=== PATIENT | male | born 1995 | race African-American/Black ===

== ENCOUNTER 2016-07-28 11:58 | Emergency (ER) | payer OTHER | END 2016-07-28 12:37 | disposition home or self-care (01) | LOC: D.ER 11:58 | DX: F41.9 Anxiety disorder, unspecified (principal) ==

== ENCOUNTER 2017-02-15 15:12 | Emergency (ER) | payer OTHER ==
[2017-02-15 18:20] LABS: APPEARANCE CLEAR (CLEAR); BACTERIA FEW /hpf (NONE SEEN); BILIRUBIN NEGATIVE (NEGATIVE); COLOR DK YELLOW (YELLOW); EPITHELIAL CELLS OCC /hpf (0-5); GLUCOSE NEGATIVE (NEGATIVE); KETONE NEGATIVE (NEGATIVE); LEUKOCYTE ESTERASE NEGATIVE (NEGATIVE); MUCUS <1+ /lpf (NONE SEEN); NITRITE NEGATIVE (NEGATIVE); PROTEIN NEGATIVE (NEGATIVE); RED CELLS - URINE 0-5 /hpf (0-5); SPECIFIC GRAVITY 1.015 (1.005-1.020); UROBILINOGEN NORMAL (NORMAL); WHITE CELLS - URINE 0-5 /hpf (0-5)
[2017-02-15 18:26] LABS: UDS - AMPHET NEGATIVE QUAL (NEGATIVE); UDS - BARB NEGATIVE QUAL (NEGATIVE); UDS - BENZO POSITIVE QUAL (NEGATIVE); UDS - COCAINE NEGATIVE QUAL (NEGATIVE); UDS - METH NEGATIVE QUAL (NEGATIVE); UDS - OPIATE NEGATIVE QUAL (NEGATIVE); UDS - PCP NEGATIVE QUAL (NEGATIVE); UDS - THC POSITIVE QUAL (NEGATIVE)
== END 2017-02-15 18:59 | disposition home or self-care (01) ==
LOC: D.ER 15:12
PROVIDERS: Nurse Practitioner Acute Care
DX: F41.0 Panic disorder [episodic paroxysmal anxiety] (principal); F12.10 Cannabis abuse, uncomplicated; F17.200 Nicotine dependence, unspecified, uncomplicated; I45.10 Unspecified right bundle-branch block

== ENCOUNTER 2017-04-17 00:31 | Emergency (ER) | payer OTHER | END 2017-04-17 02:00 | disposition home or self-care (01) | LOC: D.ER 00:31 | DX: G43.909 Migraine, unspecified, not intractable, without status migrainosus (principal) ==